=== PATIENT | male | born 1955 | race Caucasian/White ===

== ENCOUNTER 2017-04-17 12:06 | Day surgery (SDC) | payer OTHER ==
[~2017-04-17] VITALS: Ht 177.8 cm; Wt 99.8 kg
[~2017-04-17 12:06] MED LIST: ACID CONTROLLER20 MG PO; APRESOLINE50 MG PO; ASPIR 8181 M1 PO; COMBIVENT RESPIM4 GM IH; DAILY VITAMIN1 EAC4 PO; DESYREL100 MG PO; FUROSEMIDE40 MG PO; GLIPIZIDE ER2.5 MG PO; METOPROLOL SUC100 MG PO; NITROSTAT0.4 MG SL; PROAIR HFA8.5 GM IH; RENVELA800 MG PO; SERTRALINE HCL100 MG PO; TRIPHROCAPS SOFT1 MG PO
[2017-04-17 12:50] LABS: HEMATOCRIT 36.5 % (38.0-50.0); HEMOGLOBIN 11.9 G/DL (12.5-16.6); MCHC 32.6 G/DL (30.0-36.0); MCV 91.9 FL (86-99); PLATELET COUNT 140 K/uL (156-360); RBC DIS.WIDTH-CV 14.9 % (11.8-14.6); RBC DIS.WIDTH-SD 50.5 % (39-53); RED BLOOD COUNT 3.97 M/uL (4.00-5.50); WHITE BLOOD COUNT 9.6 K/uL (4.1-10.2)
[2017-04-17 12:58] VITALS: BP 169/70
[2017-04-17 13:23] LABS: CHLORIDE 95 MEQ/L (99-109); POTASSIUM 4.4 MEQ/L (3.7-5.4); SODIUM 136 MEQ/L (136-147)
[2017-04-17 13:28] LABS: GFR ESTIMATE (CALCULATED) 10 mL/min/ (58.99-99999); GLUCOSE 116 mg/dL (70-99); UREA NITROGEN (BUN) 45 mg/dL (9-23)
[2017-04-17 18:55] VITALS: BP 154/80
[2017-04-17 19:39] VITALS: BP 153/89
== END 2017-04-17 20:00 | disposition home or self-care (01) ==
LOC: SDC 12:06
PROVIDERS: Surgery
PROC: 031809D Bypass Left Brachial Artery to Upper Arm Vein with Autologous Venous Tissue, Open Approach (ICD-10-PCS; principal; 2017-04-17)
PROC: 3E03317 Introduction of Other Thrombolytic into Peripheral Vein, Percutaneous Approach (ICD-10-PCS; principal; 2017-04-17)
PROC: 05BC0ZZ Excision of Left Basilic Vein, Open Approach (ICD-10-PCS; principal; 2017-04-17)
DX: I12.0 Hypertensive chronic kidney disease with stage 5 chronic kidney disease or end stage renal disease (principal); E11.22 Type 2 diabetes mellitus with diabetic chronic kidney disease; Z79.84 Long term (current) use of oral hypoglycemic drugs; N18.6 End stage renal disease; Z99.2 Dependence on renal dialysis; F41.8 Other specified anxiety disorders; I48.0 Paroxysmal atrial fibrillation; J45.909 Unspecified asthma, uncomplicated
CPT/HCPCS: 80048; 82948; 85027; 87641; J0690; J1644; J2250; J2720; J3010